=== PATIENT | female | born 1990 | race African-American/Black ===

== ENCOUNTER → 2016-12-16 | Outpatient (CLI) | payer MEDICAID ==
--- NOTE | 2016-12-16 14:38 | Diagnostic Imaging Report ---
INDICATION: anatomical survey. TECHNIQUE: Multiple real-time grayscale images were obtained over the gravid uterus. COMPARISON: There are no prior studies available for comparison. FINDINGS: There is a single live fetus in cephalic presentation. heart motion is noted and a rate of 149 BPM is recorded. There are no abnormalities identified. The amniotic fluid volume is within normal limits. The placenta is anterior and there is no previa. The growth parameters are fairly uniform. IMPRESSION: 1. There is a single live fetus of approximately 19 weeks 1 day gestation +/- 1.5 weeks. The EDC is May 11, 2017. 2. There are no abnormalities identified. 3. The growth parameters are fairly uniform. Biometrical measurements are as follows: Biparietal 4.05 cm, age 18 weeks 3 days. Head circumference 15.73 cm, age 18 weeks 5 days. Abdominal circumference 13.67 cm, age 19 weeks 1 days. Femur length 3.1 cm, age 19 weeks 6 days. Sonographic estimate age: 19 weeks 1 days. Sonographic estimated date of delivery: 05-11-17. Estimated Weight: 285 gm (+/- 42 gm). LMP percentile: 38%. heart rate: 149 beats per minute. number: 1 of 1. Dictated by: Dictated on workstation # [id number]
== END ==
LOC: RAD 10:00
PROVIDERS: ATTEND Obstetrics & Gynecology
DX: Z36 Encounter for antenatal screening of mother (principal); Z3A.19 19 weeks gestation of pregnancy
CPT/HCPCS: 76805

== ENCOUNTER 2017-05-05 06:30 | Inpatient (IN) | payer MEDICAID ==
[2017-05-05] VITALS (50 sets, daily range): BP systolic 87–136; BP diastolic 52–82
[~2017-05-05] VITALS: Ht 177.8 cm; Wt 106.6 kg
--- NOTE | 2017-05-05 07:27 | History & Physical-OB ---
OB - Chief Complaint & HPI Date/Time Date of Admission: Date of Admission: May 05, 2017 at 6:46 am Time Seen by Provider: 08:20 Chief Complaint/History OB-Reason for Admission/Chief: Induction of Labor Hx : 4 Hx Para: 1 Expected Date of Delivery: May 09, 2017 Gestational Age in Weeks: 39 Gestational Age in Days: 3 Admission Nurse Assessment Rev: Yes History of Labs A pos Antibody neg RI RPR NR HBsAg NR HIV NR GC neg GBS neg OB - History Hx of Present Care: Yes Ultrasounds: Normal mid trimester US Obstetrical Complications: None Medical Complications: None Patient Past Medical History n/a OB - Admission Exam Physical Exam HEENT: NCAT Heart: Rhythm Normal Lungs: Clear Abdomen: Gravid Extremities: Normal Reflexes: Normal Cervical Dilatation: 3cm Effacement: 75% Station: -1 Membranes: Intact Heart Rate: 130's Accelerations: Accelerations Present Decelerations: No Decelerations Short Term Variability: Present Fpc Variability: Average (6-25) Contractions on Admission: 6-10 Minutes Apart Intensity: Mild OB - Assessment/Plan/Diagnosis Assessment Assessment: induction of labor Plan Plan: Induction Induction Method: AROM Discharge Diagnosis Diagnosis: 26 yo @ 39.3 GBS neg YOSHI GONZALEZ DO May 05, 2017 7:27 am
[2017-05-05] MEDS ORDERED: MINERAL OIL CONCENTRATE 99.9% 15 ML UDC TOP PRN (07:30)
[2017-05-05] MEDS: D5 LR IV SOLUTION 1,000 ML IV SCH ×2 (07:45→16:00)
[2017-05-05 07:55] LABS: BASOPHILS % (AUTO) 0 % (0-10); EOSINOPHILS # (AUTO) 0.1 10^3/uL (0.0-0.3); EOSINOPHILS % (AUTO) 1 % (0-10); HEMATOCRIT 38 % (35-52); HEMOGLOBIN 12.9 G/DL (11.5-16.0); LYMPHOCYTES # (AUTO) 2.6 X 10^3 (1.0-4.0); LYMPHOCYTES % (AUTO) 17 % (12-44); MEAN CORPUSCULAR HEMOGLOBIN 30 PG (25-34); MEAN CORPUSCULAR HGB CONC 34 G/DL (32-36); MEAN CORPUSCULAR VOLUME 86 FL (80-99); MEAN PLATELET VOLUME 9.8 FL (7.4-10.4); MONOCYTES % (AUTO) 7 % (0-12); NEUTROPHILS # (AUTO) 11.4 X 10^3 (1.8-7.8); NEUTROPHILS % (AUTO) 76 % (42-75); PLATELET COUNT 212 10^3/uL (130-400); RED BLOOD COUNT 4.37 10^6/uL (4.35-5.85); RED CELL DISTRIBUTION WIDTH 13.4 % (10.0-14.5); WHITE BLOOD COUNT 15.1 10^3/uL (4.3-11.0)
[2017-05-05 08:27] LABS: BAND NEUTROPHILS 6 %; BASOPHILS % (MANUAL) 0 %; EOSINOPHILS % (MANUAL) 3 %; LYMPHOCYTES % (MANUAL) 24 %; MONOCYTES % (MANUAL) 4 %; NEUTROPHILS % (MANUAL) 63 %
[2017-05-05 08:28] LABS: RBC MORPH NORMAL
[2017-05-05] MEDS ORDERED: OXYTOCIN/NORMAL SALINE 500 ML IV ONE (11:34)
[2017-05-05] MEDS ORDERED: OXYTOCIN/NORMAL SALINE 500 ML IV SCH ×2 (12:45→18:22)
[2017-05-05] MEDS ORDERED: CATHETER FLUSH 10 ML SYR IV SCH ×2 (14:00→22:00)
[2017-05-05] MEDS ORDERED: BUPIVACAINE 0.25% 30 ML (SENSORCAINE) VIAL ONE (15:17)
[2017-05-05] MEDS ORDERED: LIDOCAINE PF 2% 5 ML (XYLOCAINE) VIAL ONE (15:17)
[2017-05-05] MEDS ORDERED: fentaNYL INJECTION 100 MCG/2 ML AMP ONE (15:17)
[2017-05-05] MEDS ORDERED: SUFENTA 0.6MCG/ML BUPIVA 0.125 100 ML ONE (15:19)
[2017-05-05] MEDS ORDERED: LACTATED RINGERS 1,000 ML IV ONE ×2 (17:13)
[2017-05-05] MEDS ORDERED: NALOXONE 0.4 MG/ML 1 ML (NARCAN) VIAL IV PRN (17:15)
[2017-05-05] MEDS ORDERED: EPIDURAL (SUFENTA 0.6MCG/ML BUPIVA 0.125%) 100 ML BAG EPI PRN (17:15)
[2017-05-05] MEDS ORDERED: ONDANSETRON 4 MG/2 ML (SDV) Z0FRAN IV PRN (17:15)
[2017-05-05] MEDS ORDERED: LIDOCAINE/EPI 2% 1:200,00 (XYLOCAINE) 10 ML VIAL ONE (17:59)
--- NOTE | 2017-05-05 18:27 | OB Labor & Delivery Record ---
L&D History Date of Service Date of Service: May 05, 2017 History Expected Date of Delivery: May 09, 2017 Gestational Age in Weeks: 39 Hx : 4 Hx Para: 1 Complications Events: Routine care Operative Indications (Cesarea: N/A-Vaginal Delivery Intrapartal Events: None L&D Stage1 Stage One Onset of Labor - Date: May 05, 2017 Monitors and Tracing Monitor Mode: External Heart Rate: 130 Monitor Accelerations: Uniform Monitor Decelerations: Variable Station: -2 Snf Variability: Minimal (3-5) Short Term Variability: Present Presentation: Vertex Vital Signs VS - Last 72 Hours, by Label 05/05/17 05/05/17 05/05/17 05/05/17 07:53 08:25 09:00 09:15 Temp 98.2 Pulse 72 83 73 77 Resp 20 20 18 18 B/P (MAP) 118/76 (90) 113/65 (81) 114/75 (88) 119/65 (83) O2 Delivery Room Air Room Air Room Air Room Air 05/05/17 05/05/17 05/05/17 05/05/17 09:30 09:45 10:00 10:15 Pulse 77 74 76 75 Resp 18 18 18 20 B/P (MAP) 114/57 (76) 110/61 (77) 105/59 (74) 109/70 (83) O2 Delivery Room Air Room Air Room Air Room Air 05/05/17 05/05/17 05/05/17 05/05/17 10:30 10:45 11:00 11:15 Pulse 76 70 69 73 Resp 20 20 20 20 B/P (MAP) 108/68 (81) 120/72 (88) 115/73 (87) 118/73 (88) O2 Delivery Room Air Room Air Room Air Room Air 05/05/17 05/05/17 05/05/17 05/05/17 11:30 11:45 12:00 12:15 Pulse 73 75 75 72 Resp 20 20 20 20 B/P (MAP) 105/57 (73) 121/68 (85) 117/73 (88) 113/65 (81) O2 Delivery Room Air Room Air Room Air Room Air 05/05/17 05/05/17 05/05/17 05/05/17 12:30 13:15 13:30 13:45 Pulse 75 74 73 74 Resp 20 20 20 20 B/P (MAP) 119/69 (86) 123/73 (90) 119/63 (81) 110/71 (84) O2 Delivery Room Air Room Air Room Air Room Air 05/05/17 05/05/17 05/05/17 05/05/17 14:00 14:15 14:30 14:45 Pulse 72 74 71 76 Resp 20 20 20 20 B/P (MAP) 116/68 (84) 115/67 (83) 118/75 (89) 118/82 (94) O2 Delivery Room Air Room Air Room Air Room Air 05/05/17 05/05/17 05/05/17 05/05/17 15:00 15:15 15:30 15:40 Temp 98.4 Pulse 77 72 77 73 Resp 20 20 20 20 B/P (MAP) 123/78 (93) 125/70 (88) 125/63 (83) 122/58 (79) Pulse Ox 99 99 O2 Delivery Room Air Room Air Room Air Room Air 05/05/17 05/05/17 05/05/17 05/05/17 15:45 15:50 15:55 16:00 Pulse 83 68 64 74 Resp 20 18 16 16 B/P (MAP) 114/57 (76) 109/55 (73) 107/59 (75) 102/62 (75) Pulse Ox 99 99 98 98 O2 Delivery Room Air Room Air Room Air Room Air 05/05/17 05/05/17 16:05 16:10 Pulse 77 80 Resp 18 18 B/P (MAP) 87/52 (64) 112/66 (81) Pulse Ox 99 98 O2 Delivery Room Air Room Air Rupture of Membranes Spontaneous Ruture of Membrane: Yes Amniotic Membrane Rupture Time: 0852 Amniotic Membrane Fluid Desc.: Clear Vaginal Bleeding Description: Normal Show Induction/Anesthesia Epidural Cath Placement - Time: 1536 L&D Stage2 Stage Two Stage II Date: May 05, 2017 Monitors and Tracing Monitor Mode: External Heart Rate: 130 Monitor Decelerations: Variable Club Room Attendant Variability: Average (6-10) Short Term Variability: Present Position: Right Occiput Anterior Presentation: Vertex Cord Descript/Complications Cord Vessel Description: 3 Vessels Delivery Type Delivery Method: Spontaneous Vaginal Anterior Shoulder: Left Episiotomy/Perineal Laceration Laceraction(s)/Extensions: No Condition of Infant Delivery 1 minute Comment: 9 5 minute Comment: 9 Condition of Infant Condition of : Living Exam: No Observed Abnormalities Live female weight pending, mother nursing skin to skin immediately after delivery Resuscitation Resuscitation: N/A - Spontaneous Resp L&D Stage3 Stage Three Stage III Date: May 05, 2017 Pictocin Pitocin Administration mu/min: 8 Pitocin ml/hr: 8 Pitocin Administration Comment: [facility] Placenta Delivery Placenta Delivery: Spontaneous Delivery Summary Summary Estimated blood loss (mL): 350 Attending at delivery: Yoshi Gonzalez DO Condition of Delivery Examined: Cervix Examined, Uterus Explored Post Hemorrhage: No Condition of Mother stable Condition of Infant (s) stable YOSHI GONZALEZ DO May 05, 2017 6:27 pm
--- NOTE | 2017-05-05 18:28 | Discharge Inst-Women's Service ---
Discharge Inst-Women's Serv Depart Medication/Instructions New, Converted or Re-Newed RX: RX on Chart Consults/Follow Up Additional Follow Up: Yes Orders/Referrals Dr. Gonzalez in 6 weeks Activity Activity: Activity as Tolerated Driving Instructions: No Driving for 1 Week NO SMOKING: NO SMOKING Nothing Inside Vagina: No Douching, No [place], No Tampons Diet Discharge Diet: No Restrictions Symptoms to Report to : Bleeding Excessive, Pain Increased, Fever Over 101 Degrees F, Vaginal Bleeding Increase, Questions/Concerns For Any Problems or Questions: Contact Your Physician Skin/Wound Care Bathing Instructions: Shower (or sitz baths x 2 weeks) YOSHI GONZALEZ DO May 05, 2017 6:28 pm
[2017-05-05] MEDS ORDERED: Benzocaine/Menthol TP (18:30)
[2017-05-05] MEDS ORDERED: FERR-74 PO (18:30)
[2017-05-05] MEDS ORDERED: MEASLES,MUMPS,RUBELLA 1 EA INJ SQ ONE (18:30)
[2017-05-05] MEDS ORDERED: WITCH HAZEL(TUCKS) 40 EA JAR TOP PRN (18:30)
[2017-05-05] MEDS ORDERED: DOCU100C37 PO (18:30)
[2017-05-05] MEDS ORDERED: TETANUS,DIPTH,PERTUSS P/F (BOOSTRIX) 0.5 ML VIAL IM ONE (18:30)
[2017-05-05] MEDS ORDERED: DIBUCAINE (NUPERCAINAL) 1% OINT 30 GM TOP PRN (18:30)
[2017-05-05] MEDS ORDERED: ACHD5005 PO (18:30)
[2017-05-05] MEDS ORDERED: IBUP-1773 PO (18:30)
[2017-05-05] MEDS ORDERED: BENZOCAINE/MENTHOL (DERMOPLAST) 56 ML CAN TP PRN (18:30)
[2017-05-05] MEDS: IBUPROFEN 600 MG (MOTRIN) TAB PO SCH (21:29)
[2017-05-06 00:10] VITALS: BP 104/56
[2017-05-06 04:31] VITALS: BP 92/47
[2017-05-06 05:49] LABS: BASOPHILS % (AUTO) 0 % (0-10); EOSINOPHILS # (AUTO) 0.1 10^3/uL (0.0-0.3); EOSINOPHILS % (AUTO) 1 % (0-10); HEMATOCRIT 30 % (35-52); HEMOGLOBIN 11.4 G/DL (11.5-16.0); LYMPHOCYTES # (AUTO) 2.5 X 10^3 (1.0-4.0); LYMPHOCYTES % (AUTO) 16 % (12-44); MEAN CORPUSCULAR HEMOGLOBIN 30 PG (25-34); MEAN CORPUSCULAR HGB CONC 38 G/DL (32-36); MEAN CORPUSCULAR VOLUME 79 FL (80-99); MEAN PLATELET VOLUME 9.3 FL (7.4-10.4); MONOCYTES # (AUTO) 1.1 X 10^3 (0.0-1.0); MONOCYTES % (AUTO) 7 % (0-12); NEUTROPHILS # (AUTO) 12.2 X 10^3 (1.8-7.8); NEUTROPHILS % (AUTO) 77 % (42-75); PLATELET COUNT 185 10^3/uL (130-400); RED BLOOD COUNT 3.85 10^6/uL (4.35-5.85); RED CELL DISTRIBUTION WIDTH 12.9 % (10.0-14.5); WHITE BLOOD COUNT 15.8 10^3/uL (4.3-11.0)
[2017-05-06] MEDS: FERROUS SULF 325 MG (IRON) TAB PO SCH (08:25)
[2017-05-06] MEDS: PRENATAL VITAMIN 1 EA TAB PO SCH (08:25)
[2017-05-06] MEDS: DOCUSATE SODIUM 100 MG (COLACE) CAP PO SCH ×2 (08:26→20:51)
[2017-05-06] MEDS: IBUPROFEN 600 MG (MOTRIN) TAB PO SCH ×3 (08:26→16:49)
--- NOTE | 2017-05-06 09:20 | Progress Note-Standard ---
Standard Progress Note Progress Notes/Assess & Plan Date Seen by Provider: May 06, 2017 Time Seen by Provider: 09:20 Progress/Assessment & Plan Patient doing well PPD 1 NVD. Reports good pain control, she is ambulating and voiding freely. Lochia is moderate to light now. Vital Sign - Last 24 Hours 05/05/17 05/05/17 05/05/17 05/05/17 09:30 09:45 10:00 10:15 Pulse 77 74 76 75 Resp 18 18 20 B/P (MAP) 114/57 (76) 110/61 (77) 105/59 (74) 109/70 (83) O2 Delivery Room Air Room Air Room Air Room Air 05/05/17 05/05/17 05/05/17 05/05/17 10:30 10:45 11:00 11:15 Pulse 76 70 69 73 Resp 20 20 20 20 B/P (MAP) 108/68 (81) 120/72 (88) 115/73 (87) 118/73 (88) O2 Delivery Room Air Room Air Room Air Room Air 05/05/17 05/05/17 05/05/17 05/05/17 11:30 11:45 12:00 12:15 Pulse 73 75 75 72 Resp 20 20 20 20 B/P (MAP) 105/57 (73) 121/68 (85) 117/73 (88) 113/65 (81) O2 Delivery Room Air Room Air Room Air Room Air 05/05/17 05/05/17 05/05/17 05/05/17 12:30 13:15 13:30 13:45 Pulse 75 74 73 74 Resp 20 20 20 20 B/P (MAP) 119/69 (86) 123/73 (90) 119/63 (81) 110/71 (84) O2 Delivery Room Air Room Air Room Air Room Air 05/05/17 05/05/17 05/05/17 05/05/17 14:00 14:15 14:30 14:45 Pulse 72 74 71 76 Resp 20 20 20 20 B/P (MAP) 116/68 (84) 115/67 (83) 118/75 (89) 118/82 (94) O2 Delivery Room Air Room Air Room Air Room Air 05/05/17 05/05/17 05/05/17 05/05/17 15:00 15:15 15:30 15:40 Temp 98.4 Pulse 77 72 77 73 Resp 20 20 20 20 B/P (MAP) 123/78 (93) 125/70 (88) 125/63 (83) 122/58 (79) Pulse Ox 99 99 O2 Delivery Room Air Room Air Room Air Room Air 05/05/17 05/05/17 05/05/17 05/05/17 15:45 15:50 15:55 16:00 Pulse 83 68 64 74 Resp 20 18 16 16 B/P (MAP) 114/57 (76) 109/55 (73) 107/59 (75) 102/62 (75) Pulse Ox 99 99 98 98 O2 Delivery Room Air Room Air Room Air Room Air 05/05/17 05/05/17 05/05/17 05/05/17 16:05 16:10 16:15 16:30 Temp 99.6 Pulse 77 80 75 69 Resp 18 18 16 16 B/P (MAP) 87/52 (64) 112/66 (81) 113/67 (82) 113/69 (84) Pulse Ox 99 98 98 98 O2 Delivery Room Air Room Air Room Air Room Air 05/05/17 05/05/17 05/05/17 05/05/17 16:45 17:00 17:15 17:30 Pulse 74 79 71 76 Resp 18 18 18 20 B/P (MAP) 110/67 (81) 113/67 (82) 114/67 (83) 113/62 (79) Pulse Ox 97 98 98 99 O2 Delivery Room Air Room Air Room Air Room Air 05/05/17 05/05/17 05/05/17 05/05/17 17:45 18:00 18:15 18:30 Temp 99.4 98.5 Pulse 78 85 94 80 Resp 20 20 20 20 B/P (MAP) 119/68 (85) 136/75 (95) 125/58 (80) 122/64 (83) Pulse Ox 98 100 O2 Delivery Room Air Room Air Room Air Room Air 05/05/17 05/05/17 05/05/17 05/05/17 18:45 19:06 19:23 19:36 Temp 98.6 Pulse 82 83 80 76 Resp 20 18 18 18 B/P (MAP) 121/62 (81) 131/78 (95) 121/56 (77) 109/71 (84) O2 Delivery Room Air Room Air Room Air Room Air 05/05/17 05/05/17 05/05/17 05/06/17 19:51 20:06 21:20 00:10 Temp 98.5 98.4 Pulse 81 88 88 Resp 18 18 18 B/P (MAP) 107/70 (82) 114/67 (83) 104/56 (72) Pulse Ox 98 O2 Delivery Room Air Room Air Room Air 05/06/17 04:31 Temp 98.0 Pulse 83 Resp 18 B/P (MAP) 92/47 (62) Pulse Ox 98 O2 Delivery Room Air Intake and Output 05/05/17 05/05/17 05/06/17 15:00 23:00 07:00 Intake Total 1500 ml Balance 1500 ml Uterine fundus firm and palpated below umbilicus Laboratory Tests Test 05/06/17 05:25 Range/Units White Blood Count 15.8 H 4.3-11.0 10^3/uL Red Blood Count 3.85 L 4.35-5.85 10^6/uL Hemoglobin 11.4 L 11.5-16.0 G/DL Hematocrit 30 L 35-52 % Mean Corpuscular Volume 79 L 80-99 FL Mean Corpuscular Hemoglobin 30 25-34 PG Mean Corpuscular Hemoglobin Concent 38 H 32-36 G/DL Red Cell Distribution Width 12.9 10.0-14.5 % Platelet Count 185 130-400 10^3/uL Mean Platelet Volume 9.3 7.4-10.4 FL Neutrophils (%) (Auto) 77 H 42-75 % Lymphocytes (%) (Auto) 16 12-44 % Monocytes (%) (Auto) 7 0-12 % Eosinophils (%) (Auto) 1 0-10 % Basophils (%) (Auto) 0 0-10 % Neutrophils # (Auto) 12.2 H 1.8-7.8 X 10^3 Lymphocytes # (Auto) 2.5 1.0-4.0 X 10^3 Monocytes # (Auto) 1.1 H 0.0-1.0 X 10^3 Eosinophils # (Auto) 0.1 0.0-0.3 10^3/uL Basophils # (Auto) 0.0 0.0-0.1 10^3/uL Diagnosis: PPD 1 NVD P: Continue routine PP care Anticipate dc tomorrow YOSHI GONZALEZ DO May 06, 2017 9:20 am
[2017-05-06 10:13] VITALS: BP 113/60
--- NOTE | 2017-05-06 10:37 | Anesthesia-Regional Post-Op ---
Regional Patient Condition Mental Status: Alert, Oriented x3 Circulation: Same as Pre-Op Headache: Absent Sensation: Full Recovery Motor Block: Absent Post Op Complications Complications None Follow Up Care/Instructions Patient Instructions None needed. Anesthesia/Patient Condition Patient is doing well, no complaints, stable vital signs, no apparent adverse anesthesia problems. No complications reported per nursing. GABRIELE PERDUE CRNA May 06, 2017 10:37
[2017-05-06 16:45] VITALS: BP 112/67
[2017-05-06] MEDS: HYDROcodone/APAP 5 MG/325 MG (LORTAB) TAB PO PRN ×2 (16:49→23:04)
[2017-05-06 20:00] VITALS: BP 125/77
[2017-05-07 04:34] VITALS: BP 107/74
[2017-05-07] MEDS: IBUPROFEN 600 MG (MOTRIN) TAB PO SCH ×2 (04:37→10:46)
--- NOTE | 2017-05-07 08:49 | Postpartum Progress Note ---
Note Note Day #2 s/p Subjective: Patient is without complaints. Ambulating, voiding. Tolerating a regular diet without nausea or vomiting. Normal lochia. Pain is well controlled with oral pain medications. Breast feeding. Objective: Vital Sign - Last 12Hours 05/07/17 04:34 Temp 99.0 Pulse 82 Resp 20 B/P (MAP) 107/74 (85) Physical Exam: General - Alert and oriented, no apparent distress Abdomen - Soft, appropriately tender to palpation, non-distended, fundus firm at umbilicus Extremities - no edema, negative Corinne's bilaterally Assessment: 1. post- day # 2, status post vaginal vaginal delivery. Recovering well, hemodynamically stable \ Plan: Routine care. Encourage breast feeding. Encourage ambulation. Ferrous sulfate supplementation. Plan for discharge today Vitals - Labs Vital Signs - I&O Vital Signs Date Time Temp Pulse Resp B/P (MAP) Pulse Ox O2 Delivery O2 Flow Rate FiO2 05/07/17 04:34 99.0 82 20 107/74 (85) 05/06/17 20:00 97.2 77 20 125/77 (93) 98 Room Air 05/06/17 16:45 97.9 95 18 112/67 (82) 96 Room Air 05/06/17 10:13 97.9 96 18 113/60 (77) 95 Room Air ALINA CHARLES DO May 07, 2017 08:49
[2017-05-07] MEDS: FERROUS SULF 325 MG (IRON) TAB PO SCH (09:17)
[2017-05-07] MEDS: DOCUSATE SODIUM 100 MG (COLACE) CAP PO SCH (09:17)
[2017-05-07] MEDS: PRENATAL VITAMIN 1 EA TAB PO SCH (09:17)
[2017-05-07 09:18] VITALS: BP 101/58
[2017-05-07] MEDS: HYDROcodone/APAP 5 MG/325 MG (LORTAB) TAB PO PRN (11:17)
== END 2017-05-07 11:25 | disposition home or self-care (01) | DRG 775 ==
LOC: LDRP 06:46
PROVIDERS: ADMIT Obstetrics & Gynecology; ATTEND Obstetrics & Gynecology
PROC: 10E0XZZ Delivery of Products of Conception, External Approach (ICD-10-PCS; principal; 2017-05-05)
DX: O80 Encounter for full-term uncomplicated delivery (principal); Z3A.39 39 weeks gestation of pregnancy; Z37.0 Single live birth
CPT/HCPCS: 36415; 85007; 85025; 85027; 86850; 86900; 86901